=== PATIENT | female | born 1980 | race Two or more races ===

== ENCOUNTER 2025-02-05 09:58 | Outpatient (AMB) | payer OTHER, SELFPAY ==
[2025-02-05 10:03] VITALS: BP 134/87; PULSE 94; RESP 18; TEMP 37; O2SAT 97; BMI 26.5
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
== END 2025-02-05 10:53 | disposition home or self-care (01) ==
LOC: HODSOBC 09:58
PROVIDERS: PCP Family Medicine; Referring Provider Family Medicine; Supervising Provider Advanced Practice Midwife; Visit Provider Advanced Practice Midwife
DX: N92.0 Excessive and frequent menstruation with regular cycle (principal); Z90.49 Acquired absence of other specified parts of digestive tract
CPT/HCPCS: 99203; G0463

== ENCOUNTER → 2025-02-11 | Outpatient (CLI) | payer OTHER, SELFPAY ==
--- NOTE | 2025-02-11 08:15 | XR_ITS ---
Examination: Screening digital mammography, bilateral Computer aided detection 3-D breast Tomosynthesis, bilateral Date and time of exam: February 11 thousand 25 0758 hours Comparison made to mammograms dating to August 26, 2022 Indication: Screening Technique: Nonmagnified MLO, CC views of the breasts to been obtained, reconstructed from 3-D Tomosynthesis images. R2 computer aided detection program utilized for evaluation of suspicious masses and/or abnormal calcifications. 3-D Tomosynthesis images obtained. Findings: The breasts are heterogeneously dense, which may obscure small masses Benign calcifications. No interval suspicious masses Impression: BI-RADS category II: Benign Findings. Recommend 1 year follow-up mammogram.
== END | disposition home or self-care (01) ==
LOC: CDIM 07:51
PROVIDERS: Referring Provider Family Medicine; Visit Provider Family Medicine
DX: Z12.31 Encounter for screening mammogram for malignant neoplasm of breast (principal); R92.323 Mammographic fibroglandular density, bilateral breasts; R92.1 Mammographic calcification found on diagnostic imaging of breast
CPT/HCPCS: 77063; 77067

== ENCOUNTER → 2025-02-12 | Outpatient (CLI) | payer OTHER, SELFPAY ==
[2025-02-12 08:48] LABS: Free T4 (Free Thyroxine) 1.02 ng/dL (0.89-1.76); Thyroid Stimulating Hormone 1.88 uIU/mL (0.55-4.78)
== END | disposition home or self-care (01) ==
LOC: COPL 06:47
PROVIDERS: PCP Family Medicine; Referring Provider Family Medicine; Visit Provider Family Medicine
DX: E04.1 Nontoxic single thyroid nodule (principal)
CPT/HCPCS: 36415; 84439; 84443

== ENCOUNTER → 2025-02-19 | Outpatient (CLI) | payer OTHER, SELFPAY ==
--- NOTE | 2025-02-19 15:30 | XR_ITS ---
Examination: Transvaginal ultrasound of the pelvis, complete Technique: Transvaginal sonographic images pelvis performed using olivera scale imaging Exam date and time: February 19, 2025 1524 hours INDICATIONS: Irregular heavy menses beginning one month ago FINDINGS: Uterus 10.2 cm endometrial stripe 1.0 cm Multiple uterine fundal masses, the largest 4.2 x 3.8 cm Right ovary 2.7 cm arterial flow Left ovary 3.5 cm arterial flow 31 x 29 mm cyst IMPRESSION: Multiple uterine areas of fibroid degeneration, recommend 6 month follow-up transvaginal pelvic sonography.
== END | disposition home or self-care (01) ==
PROVIDERS: PCP Family Medicine; Referring Provider Advanced Practice Midwife; Visit Provider Advanced Practice Midwife
DX: D25.9 Leiomyoma of uterus, unspecified (principal)
CPT/HCPCS: 76830

== ENCOUNTER 2025-02-24 09:56 | Outpatient (AMB) | payer OTHER, SELFPAY ==
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
[2025-02-24 10:15] VITALS: BP 131/79; PULSE 89; RESP 18; TEMP 36.9; O2SAT 89; BMI 26.6
== END 2025-02-24 10:55 | disposition home or self-care (01) ==
LOC: HODSOBC 09:56
PROVIDERS: Supervising Provider Advanced Practice Midwife; Visit Provider Advanced Practice Midwife
DX: N92.0 Excessive and frequent menstruation with regular cycle (principal); Z30.011 Encounter for initial prescription of contraceptive pills
CPT/HCPCS: 99213; G0463

== ENCOUNTER 2025-03-20 14:24 | Outpatient (AMB) | payer OTHER, SELFPAY ==
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
[2025-03-20 14:44] VITALS: BP 150/84; PULSE 88; RESP 18; TEMP 36.2; O2SAT 97; BMI 26.9
== END 2025-03-20 15:04 | disposition home or self-care (01) ==
LOC: HODSOBC 14:24
PROVIDERS: PCP Obstetrics & Gynecology; Referring Provider Obstetrics & Gynecology; Supervising Provider Obstetrics & Gynecology; Visit Provider Obstetrics & Gynecology
DX: D25.1 Intramural leiomyoma of uterus (principal); N93.9 Abnormal uterine and vaginal bleeding, unspecified; E04.9 Nontoxic goiter, unspecified; Z98.51 Tubal ligation status
CPT/HCPCS: 90471; 96372; 99213; J1950; G0463

== ENCOUNTER 2025-04-16 07:59 | Outpatient (AMB) | payer OTHER, MEDICAID, SELFPAY ==
[2025-04-16 08:09] VITALS: BP 110/76; PULSE 82; RESP 17; TEMP 36.7; O2SAT 97; BMI 26.0
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
== END 2025-04-16 08:42 | disposition home or self-care (01) ==
LOC: HODSOBC 07:59
PROVIDERS: PCP Obstetrics & Gynecology; Referring Provider Obstetrics & Gynecology; Supervising Provider Obstetrics & Gynecology; Visit Provider Obstetrics & Gynecology
DX: Z30.42 Encounter for surveillance of injectable contraceptive (principal)
CPT/HCPCS: 90471; 96372; 99213; J1950; G0463

== ENCOUNTER 2025-05-12 08:55 | Outpatient (AMB) | payer OTHER, MEDICAID, SELFPAY ==
[2025-05-12 09:02] VITALS: BP 142/79; PULSE 80; RESP 17; TEMP 36.6; O2SAT 98; BMI 26.0
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
== END 2025-05-12 10:23 | disposition home or self-care (01) ==
LOC: HODSOBC 08:55
PROVIDERS: PCP Obstetrics & Gynecology; Referring Provider Obstetrics & Gynecology; Supervising Provider Obstetrics & Gynecology; Visit Provider Obstetrics & Gynecology
DX: D25.1 Intramural leiomyoma of uterus (principal)
CPT/HCPCS: 96372; 99213; 99214; J1950; G0463

== ENCOUNTER → 2025-06-10 | Outpatient (CLI) | payer OTHER, MEDICAID, SELFPAY ==
--- NOTE | 2025-06-10 12:30 | XR_ITS ---
Examination: Thyroid sonography complete TECHNIQUE: Grayscale sonographic images thyroid lobes Date and time: June 10, 2025 1256 hours INDICATIONS: Thyroid sonography July 01, 2000 2404 left thyroid complex mass 26 x 16 x 19 mm FINDINGS: Right thyroid 4.5 cm No thyroid nodules Left thyroid 5.3 cm Lower pole complex vascular mass 29 x 18 x 18 mm compared to 26 x 16 x 19 mm on 07/01/2024 IMPRESSION: Again noted complex vascular lower pole left thyroid mass, currently measuring 26 x 16 x 19 mm Advise continued follow-up
[2025-06-10 13:29] LABS: Misc Send Out* See Sep Rpt
[2025-06-10 14:49] LABS: T4 (Thyroxine) 7.2 mcg/dL (4.5-10.9)
[2025-06-10 14:50] LABS: Thyroid Stimulating Hormone 1.71 uIU/mL (0.55-4.78)
== END | disposition home or self-care (01) ==
PROVIDERS: PCP Family Medicine; Referring Provider Family Medicine; Visit Provider Family Medicine
DX: E07.9 Disorder of thyroid, unspecified (principal); E04.1 Nontoxic single thyroid nodule
CPT/HCPCS: 36415; 76536; 84436; 84443

== ENCOUNTER 2025-06-11 09:53 | Outpatient (AMB) | payer OTHER, MEDICAID, SELFPAY ==
[2025-06-11 10:08] VITALS: BP 124/81; PULSE 86; RESP 16; TEMP 36.6; O2SAT 97; BMI 25.7
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
== END 2025-06-11 10:39 | disposition home or self-care (01) ==
LOC: HODSOBC 09:53
PROVIDERS: Supervising Provider Obstetrics & Gynecology; Visit Provider Obstetrics & Gynecology
DX: D25.1 Intramural leiomyoma of uterus (principal); E04.9 Nontoxic goiter, unspecified
CPT/HCPCS: 96372; 99213; J1950; G0463

== ENCOUNTER → 2025-08-07 | Outpatient (CLI) | payer OTHER, MEDICAID, SELFPAY ==
--- NOTE | 2025-08-07 12:53 | XR_ITS ---
Examination: Transvaginal ultrasound of the pelvis, complete Technique: Transvaginal sonographic images pelvis performed using olivera scale imaging Exam date and time: August 07, 2025, 1343 hours INDICATIONS: History uterine fibroid degeneration on ultrasound examination 6 months ago FINDINGS: Uterus 9.2 cm Uterine fundal areas of fibroid degeneration 3.0 x 3.0 cm, 1.5 x 1.6 cm, 1.2 x 1.1 cm Right ovary 2.7 cm arterial flow Left ovary 2.7 cm arterial flow IMPRESSION: Multiple uterine areas of fibroid degeneration, suggest continued 6-month follow-up transvaginal pelvic sonography.
--- NOTE | 2025-08-07 13:00 | XR_ITS ---
Examination: Pelvic ultrasound, transabdominal, complete Technique: Transabdominal ultrasound of the pelvis performed using grayscale imaging Date and time of exam: August 07, 2025, 1332 hours INDICATIONS: History multiple uterine areas of fibroid degeneration on transvaginal pelvic sonogram 05/22/2025 FINDINGS: Uterus 9.3 cm, uterine vascular fundal mass 3.8 x 2.6 x 3.0 cm, avascular masses 2.0 x 2.5 cm, 2.1 x 2.0 cm Endometrial stripe 0.7 cm Right ovary 3.0 cm arterial flow Left ovary obscured by bowel gas IMPRESSION: Multiple uterine masses as above, recommend 3-month follow-up transvaginal pelvic sonography
== END | disposition home or self-care (01) ==
LOC: CDIM 12:48
PROVIDERS: PCP Family Medicine; Referring Provider Obstetrics & Gynecology; Visit Provider Obstetrics & Gynecology
DX: R19.09 Other intra-abdominal and pelvic swelling, mass and lump (principal); D25.9 Leiomyoma of uterus, unspecified
CPT/HCPCS: 76830; 76856

== ENCOUNTER 2025-08-22 08:51 | Outpatient (AMB) | payer OTHER, MEDICAID, SELFPAY ==
[2025-08-22 09:16] VITALS: BP 126/84; PULSE 96; RESP 18; TEMP 36.2; O2SAT 98; BMI 25.4
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
== END 2025-08-22 13:42 | disposition home or self-care (01) ==
LOC: HODSOBC 08:51
PROVIDERS: Supervising Provider Obstetrics & Gynecology; Visit Provider Obstetrics & Gynecology
DX: D25.1 Intramural leiomyoma of uterus (principal)
CPT/HCPCS: 99213; G0463

== ENCOUNTER 2025-08-28 08:10 | Inpatient (IN) | payer OTHER, MEDICAID, SELFPAY ==
[2025-08-27 10:47] VITALS: BMI 25.6
[2025-08-27 11:25] LABS: Basophils # (Auto) 0.1 Thou/mm3 (0.0-0.2); Basophils % (Auto) 1 % (0-2.5); Eosinophils # (Auto) 0.1 Thou/mm3 (0.0-0.5); Eosinophils % (Auto) 1 % (0-10); Hematocrit 40.2 % (36.0-46.0); Hemoglobin 13.4 g/dL (12.0-16.0); Immature Granulocytes Auto 0.01 Thou/mm3 (0.00-0.00); Lymphocytes # (Auto) 2.3 Thou/mm3 (1.0-4.8); Lymphocytes % (Auto) 48 % (10-50); Mean Corpuscular HGB Conc 33.3 g/dl (31.0-37.0); Mean Corpuscular Hemoglobin 29.1 pg (25.0-35.0); Mean Corpuscular Volume 87 fL (80-100); Monocytes # (Auto) 0.4 Thou/mm3 (0.0-0.8); Monocytes % (Auto) 8 % (0-12); Neutrophils # (Auto) 1.9 Thou/mm3 (1.8-7.7); Neutrophils % (Auto) 41 % (37-80); Nucleated Red Blood Cell # 0.00 Thou/mm3 (0.00-0.00); Nucleated Red Blood Cell % 0 /100 WBC (0); Platelet Count 329 Thou/mm3 (140-440); RDW Standard Deviation 40.7 fL (36.4-46.3); Red Blood Count 4.61 Miln/mm3 (4.00-5.20); White Blood Count 4.7 Thou/mm3 (3.6-11.0)
[2025-08-27 11:35] LABS: HCG,Qualitative Serum Negative
[2025-08-27 11:42] LABS: Alanine Aminotransferase 22 U/L (10-49); Albumin, Serum 4.7 gm/dL (3.5-5.0); Albumin/Globulin Ratio 2.0 (1.2-2.2); Alkaline Phosphatase 67 U/L (46-116); Anion Gap 10 (7-16); Aspartate Amino Transferase 25 U/L (0-34); BUN/Creatinine Ratio 28 Ratio (12-20); Bilirubin,Total 0.7 mg/dL (0.3-1.2); Blood Urea Nitrogen 22 mg/dL (9-23); Calcium 9.2 mg/dL (8.3-10.6); Calcium (Corrected) 9.2 mg/dL (8.5-10.1); Carbon Dioxide 30.5 mMol/L (20.0-31.0); Chloride 105 mMol/L (98-107); Creatinine (Component) 0.8 mg/dL (0.6-1.3); Estimated Creatinine Clearance 90.2 mL/min (>60); Globulin 2.3 gm/dL (2.3-3.5); Glucose 85 mg/dL (74-106); Osmolality,Calculated 291 (275-295); Potassium 3.8 mMol/L (3.4-5.1); Sodium 145 mMol/L (136-145); Total Protein 7.0 gm/dL (5.7-8.2); eGFR > 60 See Note
[2025-08-28] VITALS (9 sets, daily range): BP systolic 100–124; BP diastolic 59–77; PULSE 74–99; RESP 12–21; TEMP 36.2–37.2; O2SAT 94–100; BMI 26.4
--- NOTE | 2025-08-28 12:08 | PD.GYNPROC ---
Operative Note - WOMEN'S MINISTRY DIRECTOR Procedure Date of procedure: 08/28/25 Procedure Performed: Total abdominal hysterectomy and right salpingectomy Indication: 45-year-old with multiple leiomyomas of uterus and abnormal uterine bleeding Procedure description: Informed consent was obtained and the patient was taken to the operating room. Identity was confirmed by double identifiers and she was placed on the operating table. General anesthesia was administered, and the patient was secured and positioned in the supine position. The abdomen and perineum were prepped and draped in the usual sterile fashion. A Amaya catheter was placed for continuous drainage. A surgical timeout was performed. The patient had a history of prior panniculectomy and abdominoplasty, with a well-healed transverse scar extending from anterior superior iliac spine to anterior superior iliac spine. A mid-portion incision was made along this scar line. The skin was under significant tension due to the previous surgical procedure, and the subcutaneous layer and rectus muscles were carefully dissected to avoid injury and ensure adequate exposure. The rectus fascia was identified and incised on either side of the midline and extended bilaterally using Rice scissors. Fascia was grasped using Doron clamps and dissected from the rectus muscles above and below. The rectus bellies were , and the peritoneum was identified and entered bluntly. The peritoneal entry was gently stretched to gain access. An Yvon O-ring retractor was placed and bowel was packed cephalad. The uterus was grasped using a double-tooth tenaculum and placed under traction. Dissection was started on the right side: the utero-ovarian ligament was divided, followed by separate dissection of the fallopian tube, then the round ligament. The anterior and posterior leaves of the broad ligament were opened, the bladder flap was developed anteriorly, and the posterior dissection was carried down to the uterosacral ligament. Dissection continued until the right uterine artery was skeletonized, ligated, and divided. Attention was then turned to the left side, where the fallopian tube and ovary were found to be densely embedded in thick adhesions involving the sigmoid colon. Due to the dense and complex nature of these adhesions, dissection was deferred, and a partial salpingectomy was performed by dividing the proximal segment of the fallopian tube. The ovary and distal tube were left in situ. Dissection was carried down both sides of the uterus until the level of the cervix was reached. A pair of Anna clamps were placed across the cervix, and the uterus was amputated and sent for pathology. The vaginal angles were tagged with 0 Vicryl. The vaginal cuff was closed in a running 0 Vicryl locked fashion, and the angles were tied together to reinforce the uterosacral ligaments. The cuff was copiously irrigated and Surgicel was applied for hemostasis. All instruments were withdrawn. The Yvon retractor and bowel packing were removed. The peritoneum was closed with 2-0 Vicryl, the rectus muscles were reapproximated with 3-0 Vicryl, and the rectus fascia was closed with 1-0 PDS staratafix in a running fashion. The subcutaneous layer was irrigated, and the fat reapproximated with 2-0 Staratafix monocryl. The skin was closed with 4-0 Monocryl, and a sterile pressure dressing was applied. The patient was undraped, anesthesia reversed, and she was transferred to recovery in stable and awake condition. All instrument, sponge, and lap counts were correct ?2. Estimated blood loss (ml): 100 Complications: none Surgical staff Operation Date: 08/28/25 10:15 Case Staff BRUSH HOLDER INSPECTOR: Leroy De Leon RN First Assistant: Maritza Alberto Diagnosis Discharge Diagnosis (1) Intramural leiomyoma of uterus: Status: Acute Problem List Completed Was Problem List Reviewed/Reconciled?: Yes
--- NOTE | 2025-08-28 12:28 | SUR.PHASEI ---
pt arrived to PACU via gurney drowsy but arouses to voice, breathing unlabored, dressing to abdomen clean, dry, and intact, VS stable, report from Key TONY, Jose KEATING, and Mike LICONA
--- NOTE | 2025-08-28 12:54 | SUR.PHASEI ---
report to Yamilet Otoole RN
--- NOTE | 2025-08-28 13:26 | SUR.PHASEI ---
1326 patient transported to room 352 via bed without incident, Bia TONY promptly in patient room, patient resting comfortably in bed, Bia RN remained at bedside with patient when this chief writer left patients room
[2025-08-28] MEDS: SODIUM CHLORIDE 0.9% 1000 ML 1,000 ML 200 ML IV ×2 (13:53→20:09)
[2025-08-28] MEDS: HYDROMORPHONE HCL 2 MG TABLET PO (16:10)
[2025-08-28] MEDS: SODIUM CHLORIDE 0.9% 1000 ML 1,000 ML 999 ML IV (17:01)
[2025-08-28] MEDS: KETOROLAC INJ 30 MG/ML VIAL IVP (19:25)
[2025-08-29] VITALS: BP 91/57; PULSE 107; RESP 16; TEMP 36.3; O2SAT 95
[2025-08-29] MEDS: SODIUM CHLORIDE 0.9% 1000 ML 1,000 ML 200 ML IV ×2 (01:11→06:14)
[2025-08-29 04:00] VITALS: BP 105/59; PULSE 95; RESP 17; TEMP 36.7; O2SAT 94
[2025-08-29 04:46] VITALS: PULSE 102; RESP 17; RESP 94
[2025-08-29 05:12] LABS: Basophils # (Auto) 0.0 Thou/mm3 (0.0-0.2); Basophils % (Auto) 0 % (0-2.5); Eosinophils # (Auto) 0.0 Thou/mm3 (0.0-0.5); Eosinophils % (Auto) 0 % (0-10); Hematocrit 34.7 % (36.0-46.0); Hemoglobin 11.5 g/dL (12.0-16.0); Immature Granulocytes Auto 0.02 Thou/mm3 (0.00-0.00); Lymphocytes # (Auto) 1.8 Thou/mm3 (1.0-4.8); Lymphocytes % (Auto) 21 % (10-50); Mean Corpuscular HGB Conc 33.1 g/dl (31.0-37.0); Mean Corpuscular Hemoglobin 28.8 pg (25.0-35.0); Mean Corpuscular Volume 87 fL (80-100); Monocytes # (Auto) 0.9 Thou/mm3 (0.0-0.8); Monocytes % (Auto) 10 % (0-12); Neutrophils # (Auto) 6.0 Thou/mm3 (1.8-7.7); Neutrophils % (Auto) 68 % (37-80); Nucleated Red Blood Cell # 0.00 Thou/mm3 (0.00-0.00); Nucleated Red Blood Cell % 0 /100 WBC (0); Platelet Count 285 Thou/mm3 (140-440); RDW Standard Deviation 40.9 fL (36.4-46.3); Red Blood Count 4.00 Miln/mm3 (4.00-5.20); White Blood Count 8.7 Thou/mm3 (3.6-11.0)
[2025-08-29 05:35] LABS: Anion Gap 9 (7-16); BUN/Creatinine Ratio 18 Ratio (12-20); Blood Urea Nitrogen 11 mg/dL (9-23); Calcium 8.2 mg/dL (8.3-10.6); Carbon Dioxide 24.5 mMol/L (20.0-31.0); Chloride 110 mMol/L (98-107); Creatinine (Component) 0.6 mg/dL (0.6-1.3); Estimated Creatinine Clearance 117.8 mL/min (>60); Glucose 124 mg/dL (74-106); Osmolality,Calculated 285 (275-295); Potassium 4.2 mMol/L (3.4-5.1); Sodium 143 mMol/L (136-145); eGFR > 60 See Note
[2025-08-29 07:35] VITALS: PULSE 64; RESP 18; RESP 99
[2025-08-29] MEDS: HYDROMORPHONE HCL 2 MG TABLET PO (07:59)
[2025-08-29 08:00] VITALS: BP 106/60; PULSE 87; RESP 18; TEMP 36.3; O2SAT 97
[2025-08-29] MEDS: DOCUSATE SOD 100 MG CAPSULE PO (08:00)
[2025-08-29 11:48] VITALS: BP 112/69; PULSE 85; RESP 18; TEMP 36.4; O2SAT 95
--- NOTE | 2025-08-29 12:29 | PD.GYNPROG ---
Documentation for date of: 08/29/25 COMMUNITY RESOURCE OFFICER Subjective Subjective Interval history: Patient doing well this morning. Pain is adequately controlled on the current regimen. No incisional complaints, no chest pain, shortness of breath, breathing difficulties. Ambulating, tolerating p.o., Adequate UOP Exam Vital Signs Temp Pulse Resp BP Pulse Ox O2 Del Method O2 Flow Rate 97.5 F 85 18 112/69 95 Room Air 2 08/29/25 11:48 08/29/25 11:48 08/29/25 11:48 08/29/25 11:48 08/29/25 11:48 08/29/25 11:48 08/28/25 12:38 Constitutional Constitutional: no acute distress Routine HEENT Exam Head: Present normocephalic and atraumatic Eye: Present EOMI and PERRL ENT: Present mucous membranes moist Routine Neck Exam Neck: Present supple and trachea midline Routine Respiratory Exam Respiratory: Present chest non-tender, lungs clear, normal breath sounds and no resp distress Routine Cardiovascular Exam Cardiovascular: Present RRR Routine Abdominal Exam Abdominal: Present soft and normoactive bowel sounds Routine Extremities Exam Extremities: Present full ROM Routine Skin Exam Skin: Present intact and dry Routine Neurological Exam Neurological: Present alert, oriented X3 and CN II-XII intact Routine Psychiatric Exam Psychiatric: Present normal affect and normal thought process Urinary Catheter Management Cath placed during this visit: no COMMUNITY RESOURCE OFFICER - PN: Obj Data Labs 08/29/25 04:28 08/29/25 04:28 Labs: Laboratory Results - last 24 hr 08/29/25 04:28 WBC 8.7 D RBC 4.00 Hgb 11.5 L Hct 34.7 L MCV 87 MCH 28.8 MCHC 33.1 RDW Std Deviation 40.9 Plt Count 285 D Neut % (Auto) 68 Lymph % (Auto) 21 [place] % (Auto) 10 Eos % (Auto) 0 Baso % (Auto) 0 Neut # (Auto) 6.0 Lymph # (Auto) 1.8 [place] # (Auto) 0.9 H Eos # (Auto) 0.0 Baso # (Auto) 0.0 Immature Gran # (Auto) 0.02 H Absolute Nucleated RBC 0.00 Immature Gran % 0 Nucleated RBC % 0 Sodium 143 Potassium 4.2 Chloride 110 H Carbon Dioxide 24.5 Anion Gap 9 BUN 11 Creatinine 0.6 Estim Creat Clear Calc 117.8 eGFR > 60 BUN/Creatinine Ratio 18 Glucose 124 H Calculated Osmolality 285 Calcium 8.2 L COMMUNITY RESOURCE OFFICER - A/P Assessment and plan (1) Intramural leiomyoma of uterus: Status: Acute (2) S/P total abdominal hysterectomy: Status: Acute Assessment and plan: POD#1 1. Continue routine post operative care 2. Transition to PO meds. 3. Encourage to ambulate 4. Anticipate discharge home today. 5. Home care instructions reviewed Postoperative Procedures: Procedures Operation Date: 08/28/25 10:15 Actual Procedure Side Surgeon p Hysterectomy, Abdominal, Right Salpingectomy Bunny Crawford MD Time Spent With Patient Time: Total time spent is greater than 50% in coordination of care (as documented) at patient's floor/unit and/or counseling patient: Time with patient: less than 15 minutes
--- NOTE | 2025-08-29 12:30 | CHAP ---
Patient was visited by the Spiritual Care Volunteer who prayed for them. (Volunteer was in the hospital from 09:30-12:30.
--- NOTE | 2025-08-29 12:30 | ESDS_ITS ---
Planned Discharge Date 08/29/25 DS: Providers Provider Date of admission: 08/28/25 08:10 Primary care physician: Suman Reid MD Admitting Provider: Bunny Crawford MD Attending Provider on Admission: Bunny Crawford MD Attending Provider on DC: Bunny Crawford MD Discharging Provider: Bunny Crawford MD DS: Diagnosis Discharge Diagnosis (1) S/P total abdominal hysterectomy: Status: Acute (2) Intramural leiomyoma of uterus: Status: Acute Problem List Completed Was Problem List Reviewed/Reconciled?: Yes Hospital Course Hospital Course Hospital course: Patient doing well this morning. Pain is adequately controlled on the current regimen. No incisional complaints, no chest pain, shortness of breath, breathing diffic ulties. Ambulating, tolerating p.o., Adequate UOP Time Spent with Patient Time attestation: Total time spent providing and/or coordinating discharge services: Time spent: Less than 30 minutes Quality: VTE Deep Vein Thrombosis/Pulmonary Embolism Present on Admission: No Exam - PROCESS DEVELOPMENT MANAGER Vital Signs Temp Pulse Resp BP Pulse Ox O2 Del Method O2 Flow Rate 97.5 F 85 18 112/69 95 Room Air 2 08/29/25 11:48 08/29/25 11:48 08/29/25 11:48 08/29/25 11:48 08/29/25 11:48 08/29/25 11:48 08/28/25 12:38 Discharge Plan Plan Patient Disposition: HOME (Self Care) Patient condition on transfer: Stable Prescriptions/Referrals Prescriptions/Med Rec: New hydrocodone-acetaminophen 5-325 mg tablet 1 tab PO Q6H MDD 4 PRN (Reason: pain) 7 Days Qty: 28 0RF docusate sodium [Stool Softener] 100 mg capsule 100 mg PO QDAY 30 Days Qty: 30 0RF ibuprofen 600 mg tablet 600 mg PO Q6H MDD 4 PRN (Reason: fever or pain) 10 Days Qty: 40 0RF amoxicillin-pot clavulanate 875-125 mg tablet 1 tab PO BID 7 Days Qty: 14 0RF Continued estradiol 0.5 mg tablet 0.5 mg PO QDAY 90 Days Qty: 90 3RF Referrals: Suman Reid MD [Primary Care Provider, Family Practice] Bunny Crawford MD [Physician, DISTRIBUTION COORDINATOR] Patient/Caregiver Discharge Instructions Discharge Activity: activity as tolerated Education Materials: Recovering from Hysterectomy, Abdominal Hysterectomy Dc, After Abdominal Hysterectomy ... Print Language: Bulgarian Stand Alone Forms: Glenda Award Info., Patient Portal Info Letter, DC from Surgery
[2025-08-29] MEDS: HYDROcodone/APAP 5/325 TABLET 1 TAB PO (13:07)
== END 2025-08-29 13:45 | disposition home or self-care (01) | DRG 743 ==
LOC: S2W1 08:20 → S3NX 13:36
PROVIDERS: Admitting Provider Obstetrics & Gynecology; PCP Family Medicine; Visit Provider Obstetrics & Gynecology
PROC: 0UT90ZZ Resection of Uterus, Open Approach (ICD-10-PCS; principal; 2025-08-28 10:00)
DX: D25.1 Intramural leiomyoma of uterus (principal)
CPT/HCPCS: 36415; 80048; 80053; 84703; 85025; 86850; 86900; 86901; A4217; A4649; J0131; J0690; J1885; J2250; J2371; J2704; J3010; J3490; J7030; A9270; J7999

== ENCOUNTER 2025-09-10 08:23 | Outpatient (AMB) | payer OTHER, MEDICAID, SELFPAY ==
[2025-09-10 08:30] VITALS: BP 126/86; PULSE 81; RESP 16; TEMP 36.6; O2SAT 96; BMI 25.4
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
== END 2025-09-10 08:48 | disposition home or self-care (01) ==
LOC: HODSOBC 08:23
PROVIDERS: PCP Family Medicine; Referring Provider Family Medicine; Supervising Provider Obstetrics & Gynecology; Visit Provider Obstetrics & Gynecology
DX: Z48.816 Encounter for surgical aftercare following surgery on the genitourinary system (principal); Z90.710 Acquired absence of both cervix and uterus
CPT/HCPCS: 99214; G0463

== ENCOUNTER 2025-10-07 08:14 | Outpatient (AMB) | payer OTHER, MEDICAID, SELFPAY ==
[2025-10-07 08:26] VITALS: BP 118/81; PULSE 92; RESP 18; TEMP 36.2; O2SAT 98; BMI 25.9
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
== END 2025-10-07 08:56 | disposition home or self-care (01) ==
LOC: HODSOBC 08:14
PROVIDERS: Supervising Provider Obstetrics & Gynecology; Visit Provider Obstetrics & Gynecology
DX: Z48.816 Encounter for surgical aftercare following surgery on the genitourinary system (principal); Z90.710 Acquired absence of both cervix and uterus
CPT/HCPCS: 99213; G0463